=== PATIENT | female | born 1955 | race Caucasian/White ===

== ENCOUNTER → 2018-05-28 12:02 | Outpatient (REF) | payer MEDICARE, SELFPAY ==
[2018-05-28 18:02] LABS: Basophils # 0.1 K/mm3 (0-0.2); Basophils % 0.6 % (0.1-2.0); Eosinophils # 0.2 K/mm3 (0.0-0.4); Eosinophils % 2.2 % (0.1-12.0); Hemoglobin 15.6 g/dL (12.2-16.2); Lymphocytes # 2.9 K/mm3 (0.7-4.5); Mean Corpuscular HGB Conc 32.4 g/dL (31.8-35.4); Mean Corpuscular Hemoglobin 27.7 pg (27.0-31.2); Mean Corpuscular Volume 85.5 fl (81-99); Mean Platelet Volume 9.3 fl (7.4-10.4); Monocytes # 0.4 K/mm3 (0.1-1.0); Monocytes % 5.1 % (1.7-9.3); Neutrophils # 4.7 K/mm3 (1.8-7.8); Platelet Count 246 K/mm3 (142-424); Red Blood Count 5.62 M/mm3 (4.20-5.40); Red Cell Distribution Width 13.7 % (11.5-17.5); White Blood Count 8.2 K/mm3 (4.8-10.8)
[2018-05-28 18:13] LABS: Alanine Aminotransferase 21 U/L (12-78); Albumin/Globulin Ratio 1.3 (1.1-1.8); Alkaline Phosphatase 86 U/L (46-116); Anion Gap 14.4 mEq/L (5-15); Aspartate Amino Transferase 15 U/L (15-37); Bilirubin,Total 0.5 mg/dL (0.2-1.0); Blood Urea Nitrogen 14 mg/dL (7-18); Calcium 9.3 mg/dL (8.5-10.1); Carbon Dioxide 29 mmol/L (21.0-32.0); Chloride 107 mmol/L (98-107); Creatinine,Serum 1.03 mg/dL (0.55-1.02); Estimated Glomerular Filt Rate 54 ml/min (>60); GFR (African American) 65 ML/MIN (>60); Globulin 3.2 gm/dl (1.3-3.2); Glucose 84 mg/dL (74-106); Potassium 5.4 mmoL/L (3.5-5.1); Sodium 145 mmol/L (136-145); Total Protein,Serum 7.2 gm/dL (6.4-8.2)
== END ==
LOC: LAB 12:02
PROVIDERS: Visit Provider Physician Assistant
DX: R10.9 Unspecified abdominal pain (principal); R05 Cough
CPT/HCPCS: 80053; 85025

== ENCOUNTER → 2018-05-31 09:43 | Outpatient (CLI) | payer MEDICARE, SELFPAY ==
[2018-05-31 10:31] LABS: Anion Gap 11.6 mEq/L (5-15); Blood Urea Nitrogen 12 mg/dL (7-18); Calcium 8.9 mg/dL (8.5-10.1); Carbon Dioxide 29 mmol/L (21.0-32.0); Chloride 106 mmol/L (98-107); Creatinine,Serum 0.95 mg/dL (0.55-1.02); Estimated Glomerular Filt Rate 59 ml/min (>60); GFR (African American) 71 ML/MIN (>60); Glucose 110 mg/dL (74-106); Potassium 4.6 mmoL/L (3.5-5.1); Sodium 142 mmol/L (136-145)
== END ==
PROVIDERS: PCP Emergency Medicine; Visit Provider Physician Assistant
DX: E87.5 Hyperkalemia (principal)
CPT/HCPCS: 36415; 80048

== ENCOUNTER → 2021-12-10 09:22 | Outpatient (CLI) | payer MEDICARE, SELFPAY | PROVIDERS: PCP Emergency Medicine; Visit Provider Nurse Practitioner Family | DX: Z01.812 Encounter for preprocedural laboratory examination (principal); Z11.52 Encounter for screening for COVID-19 | CPT/HCPCS: C9803; U0003; U0005 ==

== ENCOUNTER 2021-12-13 10:44 | Day surgery (SDC) | payer MEDICARE, SELFPAY ==
[2021-12-07 13:34] VITALS: BMI 33.9
[2021-12-13 12:02] VITALS: BP 132/67; PULSE 84; RESP 18; TEMP 36.6; O2SAT 99
[2021-12-13 13:06] VITALS: BP 157/98; PULSE 78; RESP 18; O2SAT 100
[2021-12-13 13:11] VITALS: BP 160/95; PULSE 74; RESP 18; O2SAT 100
[2021-12-13 13:16] VITALS: BP 144/92; PULSE 70; RESP 18; O2SAT 100
[2021-12-13 13:21] VITALS: BP 140/87; PULSE 71; RESP 18; O2SAT 100
[2021-12-13 13:23] VITALS: BP 165/89; PULSE 79; RESP 16; TEMP 36.3; O2SAT 97
== END 2021-12-13 13:33 | disposition home or self-care (01) ==
LOC: OR 10:49
PROVIDERS: PCP Nurse Practitioner Family; Visit Provider Ophthalmology
DX: H25.813 Combined forms of age-related cataract, bilateral (principal); H53.143 Visual discomfort, bilateral; H02.831 Dermatochalasis of right upper eyelid; H02.834 Dermatochalasis of left upper eyelid; Z80.9 Family history of malignant neoplasm, unspecified
CPT/HCPCS: 66984; V2632

== ENCOUNTER → 2021-12-31 08:17 | Outpatient (CLI) | payer MEDICARE, SELFPAY | PROVIDERS: Visit Provider Ophthalmology | DX: Z11.52 Encounter for screening for COVID-19 (principal) | CPT/HCPCS: C9803; U0003; U0005 ==

== ENCOUNTER 2022-01-03 06:12 | Day surgery (SDC) | payer MEDICARE, SELFPAY ==
[2022-01-03 06:30] VITALS: BP 146/93; PULSE 85; RESP 16; TEMP 36.6; O2SAT 98; BMI 32.3
[2022-01-03 08:10] VITALS: BP 148/86; PULSE 70; RESP 18; TEMP 36.3; O2SAT 98
== END 2022-01-03 08:10 | disposition home or self-care (01) ==
LOC: OR 06:13
PROVIDERS: PCP Emergency Medicine; Visit Provider Ophthalmology
DX: H25.813 Combined forms of age-related cataract, bilateral (principal); H02.831 Dermatochalasis of right upper eyelid; H02.834 Dermatochalasis of left upper eyelid
CPT/HCPCS: 66984; V2632